=== PATIENT | male | born 1970 | race American Indian/Alaskan Native ===

== ENCOUNTER 2016-12-02 15:25 | Emergency (ER) | payer MEDICAID ==
[2016-12-02] MEDS: TORADOL IM ONE (22:48)
[2016-12-02] MEDS: NORCO 10/325 PO ONE (22:49)
--- NOTE | 2016-12-02 22:52 | Emergency Department Report ---
ED Medical Clearance HPI - General Chief complaint: Extremity Injury, Lower Stated complaint: LEFT SIDE NERVE PAIN Time Seen by Provider: 12/02/16 21:21 Source: patient Mode of arrival: Ambulatory - History of Present Illness Initial comments: 46-year-old male past medical history sciatica, chronic lower back pain, hypertension presents for acute on chronic lower back pain. Patient is awake alert and oriented is ambulating during my interview without assistance. Denies saddle paresthesias denies bladder or bowel incontinence. States he has left buttock pain radiating down his left leg intermittently for approximately 4 -5 months. States he has been seen in the ED at [facility] and given pain medicines in the past but does not understand why he is having persistent pain in his left leg. Patient denies any direct trauma denies any falls no recent motor vehicle accidents. Denies any urinary symptoms no dysuria or increased urinary frequency denies abdominal pain fever chills or upper or lower extremity weakness. Does state that he gets occasional tingling in his left leg which has been ongoing intermittently for nearly 5 months. Patient states that he primarily experiences intermittently sharp pain radiating from his left buttock through the lateral aspect of his left leg down to his toes. Patient states that the medicines he has been given have only been minimally helpful in terms of controlling his pain. Patient is requesting an explanation of what sciatica is. Does not currently have a primary doctor. MD Complaint: medical clearance request Onset/Timin -: month(s) Traumatic Symptoms: denies traumatic injury Treatments Prior to Arrival: none Home medications: Previous Rx's Medication Instructions Recorded Last Taken Type Acetaminophen/Codeine [Tylenol 1 tab PO Q8H PRN #14 tab 12/02/16 Unknown Rx /Codeine # 3 tab] Ibuprofen [Motrin] 800 mg PO Q8HR PRN #30 tablet 12/02/16 Unknown Rx amLODIPine [Norvasc] 5 mg PO DAILY #30 tab 12/02/16 Unknown Rx ED Review of Systems ROS: Stated complaint: LEFT SIDE NERVE PAIN Other details as noted in HPI Constitutional: denies: chills, fever Eyes: denies: eye pain, eye discharge, vision change ENT: denies: ear pain, throat pain Respiratory: denies: cough, shortness of breath, wheezing Cardiovascular: denies: chest pain, palpitations Endocrine: no symptoms reported Gastrointestinal: denies: abdominal pain, nausea, diarrhea Genitourinary: denies: urgency, dysuria Musculoskeletal: denies: back pain, joint swelling, arthralgia Skin: denies: rash, lesions Neurological: denies: headache, weakness, paresthesias Psychiatric: denies: anxiety, depression Hematological/Lymphatic: denies: easy bleeding, easy bruising ED Past Medical Hx - Past Medical History Previous Medical History?: Yes Additional medical history: nerve pain of L. leg - Surgical History Past Surgical History?: No - Social History Smoking Status: Never Smoker - Medications Home Medications: Home Medications Medication Instructions Recorded Confirmed Last Taken Type Acetaminophen/Codeine [Tylenol 1 tab PO Q8H PRN #14 tab 12/02/16 Unknown Rx /Codeine # 3 tab] Ibuprofen [Motrin] 800 mg PO Q8HR PRN #30 tablet 12/02/16 Unknown Rx amLODIPine [Norvasc] 5 mg PO DAILY #30 tab 12/02/16 Unknown Rx ED Physical Exam - General Limitations: No Limitations General appearance: alert, in no apparent distress - Head Head exam: Present: atraumatic, normocephalic - Eye Eye exam: Present: normal appearance, PERRL, EOMI - ENT ENT exam: Present: mucous membranes moist - Neck Neck exam: Present: normal inspection - Respiratory Respiratory exam: Present: normal lung sounds bilaterally. Absent: respiratory distress - Cardiovascular Cardiovascular Exam: Present: regular rate, normal rhythm. Absent: systolic murmur, diastolic murmur, rubs, gallop - GI/Abdominal GI/Abdominal exam: Present: soft, normal bowel sounds - Rectal Rectal exam: Present: deferred - Extremities Exam Extremities exam: Present: normal inspection - Back Exam Back exam: Present: normal inspection - Neurological Exam Neurological exam: Present: alert, oriented X3, CN II-XII intact, abnormal gait (antalgic gait due to left) - Psychiatric Psychiatric exam: Present: normal affect, normal mood - Skin Skin exam: Present: warm, dry, intact, normal color. Absent: rash ED Course Vital Signs 12/02/16 17:53 Temperature 98.5 F Pulse Rate 82 Respiratory 18 Rate Blood Pressure 172/109 O2 Sat by Pulse 100 Oximetry ED Medical Decision Making - Medical Decision Making A/P: Left-sided sciatica, chronic lower back pain, asymptomatic hypertension 1-short course Tylenol 3, Motrin when necessary 2-refill on Norvasc 3-referred to primary care orthopedics and outpatient spine surgery clinic as patient states he has had issues with sciatica for several months but has not had outpatient follow-up. Patient is ambulatory strength 5/5 both lower extremities distal knee jerk and ankle reflexes are intact laterally on clinical exam. No clinical signs of cauda equina. Rectal tone intact patient denies saddle paresthesias and/or bladder or bowel incontinence. ED Disposition Clinical Impression: Sciatica of left side, Medication refill Disposition: TO HOME OR SELFCARE Is pt being admited?: No Does the pt Need Aspirin: No Condition: Stable Instructions: Sciatica (ED), Hypertension (ED) Additional Instructions: [email or web address] [phone] Prescriptions: Acetaminophen/Codeine [Tylenol /Codeine # 3 tab] 1 tab PO Q8H PRN #14 tab PRN Reason: Pain amLODIPine [Norvasc] 5 mg PO DAILY #30 tab Ibuprofen [Motrin] 800 mg PO Q8HR PRN #30 tablet PRN Reason: Pain Referrals: GIGI GORDON MD [Staff Physician] - 3-5 Days CY BEST MD [Staff Physician] - 3-5 Days [facility] [Provider Group] - 3-5 Days [facility] [place] [facility] [place]] - 3-5 Days Forms: Work/School Release Form(ED) Time of Disposition: 23:08
[2016-12-02 23:25] VITALS: BP 148/102
== END 2016-12-02 23:25 | disposition home or self-care (01) ==
LOC: ED 15:25
DX: M54.32 Sciatica, left side (principal)
CPT/HCPCS: 96372; 99282; J1885

== ENCOUNTER 2017-05-05 18:35 | Emergency (ER) | payer MEDICAID | END 2017-05-05 19:45 | disposition left against medical advice (07) | LOC: ED 18:35 | DX: J02.9 Acute pharyngitis, unspecified (principal); Z53.21 Procedure and treatment not carried out due to patient leaving prior to being seen by health care provider ==

== ENCOUNTER 2020-12-25 22:40 | Emergency (ER) | payer MEDICAID ==
--- NOTE | 2020-12-26 01:42 | Emergency Department Report ---
ED General Adult HPI - General Chief complaint: Extremity Injury, Upper Stated complaint: CUT HAND Time Seen by Provider: 12/26/20 00:46 Source: patient Mode of arrival: Ambulatory Limitations: No Limitations - History of Present Illness Initial comments: 50-year-old -Japanese male patient complains of left little finger laceration today. Patient states he cut his finger accidentally on an object on a shelf. He denies any difficulty moving his finger. He is unsure of his last tetanus vaccination. Pain is mild per patient. Severity scale (0 -10): 6 - Related Data Previous Rx's Medication Instructions Recorded Last Taken Type Acetaminophen/Codeine [Tylenol 1 tab PO Q8H PRN #14 tab 12/02/16 Unknown Rx /Codeine # 3 tab] Ibuprofen [Motrin] 800 mg PO Q8HR PRN #30 tablet 12/02/16 Unknown Rx amLODIPine 5 mg PO DAILY #30 tab 12/02/16 Unknown Rx Mupirocin [Bactroban 2% OINT] 1 applic TP TID 7 Days #1 tube 12/26/20 Unknown Rx ED Review of Systems ROS: Stated complaint: CUT HAND Other details as noted in HPI Musculoskeletal: denies: joint swelling, arthralgia Skin: denies: change in color ED Past Medical Hx - Past Medical History Hx Hypertension: Yes Additional medical history: nerve pain of L. leg - Surgical History Past Surgical History?: No - Social History Smoking Status: Never Smoker - Medications Home Medications: Home Medications Medication Instructions Recorded Confirmed Last Taken Type Acetaminophen/Codeine [Tylenol 1 tab PO Q8H PRN #14 tab 12/02/16 Unknown Rx /Codeine # 3 tab] Ibuprofen [Motrin] 800 mg PO Q8HR PRN #30 tablet 12/02/16 Unknown Rx amLODIPine 5 mg PO DAILY #30 tab 12/02/16 Unknown Rx Mupirocin [Bactroban 2% OINT] 1 applic TP TID 7 Days #1 tube 12/26/20 Unknown Rx ED Physical Exam - General Limitations: No Limitations General appearance: alert, in no apparent distress - Head Head exam: Present: atraumatic, normocephalic - Eye Eye exam: Present: normal appearance. Absent: scleral icterus - Respiratory Respiratory exam: Absent: respiratory distress - Cardiovascular Cardiovascular Exam: Present: regular rate - Neurological Exam Neurological exam: Present: alert, oriented X3 - Psychiatric Psychiatric exam: Present: normal affect, normal mood - Skin Skin exam: Present: warm, dry, normal color. Absent: intact (Small approximately 2 cm flap laceration noted to proximal volar left little finger; no obvious foreign bodies noted; minimal active bleeding noted), rash ED Course Vital Signs 12/25/20 22:47 Temperature 98.1 F Pulse Rate 80 Respiratory 18 Rate Blood Pressure 105/79 [Right] O2 Sat by Pulse 99 Oximetry ED Medical Decision Making - Medical Decision Making 50-year-old -Japanese male patient complains of left little finger laceration today. Patient states he cut his finger accidentally on an object on a shelf. He denies any difficulty moving his finger. He is unsure of his last tetanus vaccination. Pain is mild per patient. Wound thoroughly irrigated with Betadine saline mixture. No foreign bodies are noted. Offered patient x-ray to rule out any glass foreign body, he declines. Tetanus vaccination updated. Wound dressed and antibiotic ointment and sterile dressing. Discussed wound care and signs and symptoms that should prompt immediate return to the emergency department with patient who verbalized understanding. Is well-appearing and stable for discharge home. Critical care attestation.: If time is entered above; I have spent that time in minutes in the direct care of this critically ill patient, excluding procedure time. ED Disposition Clinical Impression: Laceration of left little finger Disposition: 01 HOME / SELF CARE / HOMELESS Is pt being admited?: No Condition: Stable Instructions: Nonsutured Laceration Care Prescriptions: Mupirocin [Bactroban 2% OINT] 1 applic TP TID 7 Days #1 tube Referrals: PRIMARY CARE, [Referring] - 3-5 Days Forms: Work/School Release Form(ED)
[2020-12-26] MEDS ORDERED: TETANUS,DIPH,PERTUSS(ACELL) VACCINE 0.5 ML SYRINGE IM ONE (01:43)
[2020-12-26] MEDS ORDERED: NEOMY 3.5 MG/BACIT 400 UNITS/POLY B 5000 UNITS/GM OINT PACKET TP STA (01:43)
[2020-12-26 02:16] VITALS: BP 115/74
== END 2020-12-26 02:18 | disposition home or self-care (01) ==
LOC: ED 22:40
DX: S61.217A Laceration without foreign body of left little finger without damage to nail, initial encounter (principal); I10 Essential (primary) hypertension; W45.8XXA Other foreign body or object entering through skin, initial encounter; Y93.89 Activity, other specified; Y92.89 Other specified places as the place of occurrence of the external cause; Y99.8 Other external cause status
CPT/HCPCS: 90471; 90715; 99282; A6250

== ENCOUNTER 2021-09-19 20:33 | Emergency (ER) | payer MEDICAID ==
[2021-09-20] MEDS ORDERED: IBUPROFEN 600 MG TAB PO ONE (04:15)
[2021-09-20] MEDS ORDERED: predniSONE 50 MG TAB PO ONE (04:15)
--- NOTE | 2021-09-20 04:46 | Emergency Department Report ---
ED General Adult HPI - General Chief complaint: Chest Pain Stated complaint: CHEST TIGHTNESS Source: patient Mode of arrival: Ambulatory Limitations: No Limitations - History of Present Illness Initial comments: Patient is a 51-year-old male with no past medical history presents to the ED with complaint of acute onset persistent right shoulder and distal right arm tingling sensation with pain that radiates to the right chest wall for the last 1 month. Patient states that the symptoms started after he quit smoking but also admits that he still smokes vaporized electronic cigarettes. Patient states that he usually sleeps on his right side and has noticed that whenever he sleeps he also wakes up with tingling sensation in his right arm reproducing the same pain. Patient denies fall, traumatic injury, shortness of breath, neck pain, cough, change in vision, back pain, diaphoresis, palpitations, sore throat, dysphagia, dysphonia, abdominal pain, nausea and vomiting. MD Complaint: right shoulder and arm tingling; anterior right chest wall tightness -: Gradual, month(s) (1) Location: chest (right sided), upper extremity (right shoulder and arm) Radiation: distal Severity scale (0 -10): 8 Quality: aching, sharp Consistency: intermittent Improves with: none Worsens with: none Associated Symptoms: denies other symptoms, chest pain (right chest wall). denies: confusion, cough, diaphoresis, fever/chills, headaches, loss of appetite, malaise, nausea/vomiting, rash, seizure, shortness of breath, syncope, weakness Treatments Prior to Arrival: none - Related Data Previous Rx's Medication Instructions Recorded Last Taken Type Acetaminophen/Codeine [Tylenol 1 tab PO Q8H PRN #14 tab 12/02/16 Unknown Rx /Codeine # 3 tab] Ibuprofen [Motrin] 800 mg PO Q8HR PRN #30 tablet 12/02/16 Unknown Rx amLODIPine 5 mg PO DAILY #30 tab 12/02/16 Unknown Rx Mupirocin [Bactroban 2% OINT] 1 applic TP TID 7 Days #1 tube 12/26/20 Unknown Rx Baclofen 20 mg PO Q12H PRN #20 tab 09/20/21 Unknown Rx Naproxen 500 mg PO Q12H PRN #30 tab 09/20/21 Unknown Rx predniSONE [Deltasone] 40 mg PO QDAY #10 tab 09/20/21 Unknown Rx Allergies Allergy/AdvReac Type Severity Reaction Status Date / Time No Known Allergies Allergy Verified 12/26/20 02:01 ED Review of Systems ROS: Stated complaint: CHEST TIGHTNESS Other details as noted in HPI Constitutional: denies: chills, fever Eyes: denies: eye pain, eye discharge, vision change ENT: denies: ear pain, throat pain Respiratory: denies: cough, shortness of breath, wheezing Cardiovascular: chest pain (right-sided chest wall pain). denies: palpitations Endocrine: no symptoms reported Gastrointestinal: denies: abdominal pain, nausea, vomiting, diarrhea Genitourinary: denies: urgency, dysuria Musculoskeletal: arthralgia (right shoulder and arm). denies: back pain, joint swelling Skin: denies: rash, lesions Neurological: denies: headache, weakness, paresthesias Psychiatric: denies: anxiety, depression Hematological/Lymphatic: denies: easy bleeding, easy bruising ED Past Medical Hx - Past Medical History Hx Hypertension: Yes Additional medical history: nerve pain of L. leg - Social History Smoking Status: Never Smoker - Medications Home Medications: Home Medications Medication Instructions Recorded Confirmed Last Taken Type Acetaminophen/Codeine [Tylenol 1 tab PO Q8H PRN #14 tab 12/02/16 Unknown Rx /Codeine # 3 tab] Ibuprofen [Motrin] 800 mg PO Q8HR PRN #30 tablet 12/02/16 Unknown Rx amLODIPine 5 mg PO DAILY #30 tab 12/02/16 Unknown Rx Mupirocin [Bactroban 2% OINT] 1 applic TP TID 7 Days #1 tube 12/26/20 Unknown Rx Baclofen 20 mg PO Q12H PRN #20 tab 09/20/21 Unknown Rx Naproxen 500 mg PO Q12H PRN #30 tab 09/20/21 Unknown Rx predniSONE [Deltasone] 40 mg PO QDAY #10 tab 09/20/21 Unknown Rx ED Physical Exam - General Limitations: No Limitations General appearance: alert, in no apparent distress - Head Head exam: Present: atraumatic, normocephalic, normal inspection - Eye Eye exam: Present: normal appearance, PERRL, EOMI Pupils: Present: normal accommodation - ENT ENT exam: Present: normal exam, normal orophraynx, mucous membranes moist, TM's normal bilaterally, normal external ear exam - Neck Neck exam: Present: normal inspection, full ROM. Absent: tenderness - Respiratory Respiratory exam: Present: normal lung sounds bilaterally, chest wall tenderness (palpable reproducible mild right chest wall tendernes). Absent: respiratory distress, wheezes, rales, rhonchi, accessory muscle use, decreased breath sounds - Cardiovascular Cardiovascular Exam: Present: regular rate, normal rhythm, normal heart sounds. Absent: systolic murmur, diastolic murmur, rubs, gallop - GI/Abdominal GI/Abdominal exam: Present: soft, normal bowel sounds. Absent: tenderness, rebound, hyperactive bowel sounds, hypoactive bowel sounds, organomegaly - Extremities Exam Extremities exam: Present: normal inspection, full ROM, tenderness (Palpable right shoulder tendernes), normal capillary refill - Back Exam Back exam: Present: normal inspection, full ROM. Absent: tenderness, CVA tenderness (R), CVA tenderness (L), muscle spasm, paraspinal tenderness, vertebral tenderness - Neurological Exam Neurological exam: Present: alert, oriented X3, CN II-XII intact, normal gait, reflexes normal - Psychiatric Psychiatric exam: Present: normal affect, normal mood - Skin Skin exam: Present: warm, dry, intact, normal color. Absent: rash ED Course Vital Signs 09/19/21 20:35 Temperature 98.8 F Pulse Rate 79 Respiratory 18 Rate Blood Pressure 120/86 O2 Sat by Pulse 99 Oximetry ED Medical Decision Making - Medical Decision Making This is a 51-year-old male with no past medical history presents to the ED with complaint of acute onset persistent right shoulder and distal right arm tingling sensation with pain that radiates to the right chest wall for the last 1 month. Patient states that the symptoms started after he quit smoking but also admits that he still smokes vaporized electronic cigarettes. Patient states that he usually sleeps on his right side and has noticed that whenever he sleeps he also wakes up with tingling sensation in his right arm reproducing the same pain. In the ED, patient is alert and oriented x3 and is not in any distress. Patient was treated for pain in the ED. Based on the history and physical exam findings, the patient symptoms are likely due to cervical radiculopathy of the right side affecting the right shoulder, right with tingling sensation. Patient's heart score is 2. Patient was discharged home on medications and advised to follow-up with his primary care physician in 7 to 10 days for reevaluation. Patient is advised to return to the ED immediately if symptoms get worse. - Differential Diagnosis muscle strain; cervical radiculopathy; costochondritis Critical care attestation.: If time is entered above; I have spent that time in minutes in the direct care of this critically ill patient, excluding procedure time. ED Disposition Clinical Impression: Cervical radiculopathy, Muscle strain of anterior chest wall Disposition: HOME / SELF CARE / HOMELESS Is pt being admited?: No Does the pt Need Aspirin: No Condition: Stable Instructions: Muscle Strain, [id number], Cervical Radiculopathy, [id number], Radicular Pain Additional Instructions: Your symptoms are likely due to cervical radiculopathy due to impingement of the nerve on your lateral right neck that innervates your right chest pectoral muscles as well as right arm. Therefore take medication with food, drink plenty of fluids, follow-up with your primary care physician in 7 to 10 days for reevaluation. Return to the ED immediately if symptoms get worse. Prescriptions: Baclofen 20 mg PO Q12H PRN #20 tab PRN Reason: Muscle Spasm predniSONE [Deltasone] 40 mg PO QDAY #10 tab Naproxen 500 mg PO Q12H PRN #30 tab PRN Reason: Pain , Severe (7-10) Referrals: [facility] [Provider Group] - 3-5 Days Forms: Work/School Release Form(ED) Time of Disposition: 04:48 Print Language: TAIWANESE
[2021-09-20 05:10] VITALS: BP 123/89
--- NOTE | 2021-09-20 18:39 | Electrocardiograph Report ---
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
== END 2021-09-20 08:11 | disposition home or self-care (01) ==
LOC: ED 20:33
DX: S29.011A Strain of muscle and tendon of front wall of thorax, initial encounter (principal); M54.12 Radiculopathy, cervical region; I10 Essential (primary) hypertension; Z79.899 Other long term (current) drug therapy; X58.XXXA Exposure to other specified factors, initial encounter; Y93.89 Activity, other specified; Y92.89 Other specified places as the place of occurrence of the external cause; Y99.8 Other external cause status
CPT/HCPCS: 93005; 99282; J7512